=== PATIENT | female | born 1970 | race Caucasian/White ===

== ENCOUNTER 2019-03-19 07:42 | Day surgery (SDC) | payer MEDICARE, MEDICAID ==
[~2019-03-19] VITALS: Ht 170.2 cm; Wt 45.5 kg
[~2019-03-19 07:42] MED LIST: ACET250T27 PO; ASCO500 PO; CALC-1038 PO; CLOB10TA3 PO; DICY10 PO; DIVA250T45 PO; DOCU-281 PO; DOCU250C91 PO; FOLI1 PO; GLUC100019 PO; GRAP50CA PO; IBAN150T16 PO; LEVE500T53 PO; LINA145C PO; LORA1TAB3 PO; MEGE40L GT; MULT1CAP32 PO; OMEG-12 PO; ONDA4 PO; PANT40TA25 PO; PHEN-649 PO; PYRI100T2 PO; SODIUM CHLORIDE 0.9% 1,000 ML IV ONE; UBID10CA6 PO
[2019-03-19] MEDS: SODIUM CHLORIDE 0.9% 1,000 ML IV ONE (08:59)
[2019-03-19] MEDS ORDERED: PROPOFOL 1% 20 ML VIAL IVP ONE (12:00)
[2019-03-19] MEDS ORDERED: LIDOCAINE/PF 2% 5 ML VIAL INJ ONE (12:00)
== END 2019-03-19 11:45 | disposition home or self-care (01) ==
LOC: SURGERY 07:42
PROVIDERS: ATTEND Internal Medicine Gastroenterology
DX: K64.0 First degree hemorrhoids (principal); G40.909 Epilepsy, unspecified, not intractable, without status epilepticus; Z98.51 Tubal ligation status; Z98.890 Other specified postprocedural states
CPT/HCPCS: 45378; J2704; J3490; J7030